=== PATIENT | female | born 1975 | race Caucasian/White ===

== ENCOUNTER 2019-12-20 18:17 | Observation (INO) | payer OTHER, SELFPAY ==
[2019-12-20] VITALS (9 sets, daily range): BP systolic 103–178; BP diastolic 63–91; PULSE 109–140; RESP 14–20; TEMP 36.7–37.2; O2SAT 95–100; BMI 48.6
--- NOTE | 2019-12-20 19:40 | ED.FEMALEGU ---
HPI - Female Genitourinary General Chief complaint: Vaginal Bleeding Stated complaint: VAG BLEEDING X2D Time Seen by Provider: 12/20/19 19:19 History of Present Illness HPI Narrative: Patient presents with her mother from home for vaginal bleeding. She said it was so heavy she had to leave for. She reports clots. It is the heaviest menstrual cycle she is ever had. She had a similar heavy cycle in August. She felt faint at work. she reports a double uterus double cervix and double canal. She does not use family-planning. She had 1 13 years ago and had a . She has not seen a physician since. She has not been sick recently. She drinks her coffee this appears to be an appetite suppressant. She works as an public accountant. Her surgeries includes wisdom tooth extraction and . She smokes marijuana. MD elicited complaint: vaginal bleeding Related Data Home Medications Medication Instructions Recorded Confirmed No Home Medications 12/20/19 12/20/19 Allergies Allergy/AdvReac Type Severity Reaction Status Date / Time latex Allergy Hives Verified 12/20/19 18:56 Review of Systems Review of Systems: Narrative: CONSTITUTIONAL: Denies fever, chills, or sweats. EYES: Denies visual changes, redness, or discharge. ENT: Denies rhinorrhea, congestion, sore throat, or otalgia. CARDIOVASCULAR: Denies chest pain, palpitations, or edema. RESPIRATORY: Denies cough or dyspnea. GASTROINTESTINAL: Denies abdominal pain, nausea, vomiting, or diarrhea. GENITOURINARY: Denies dysuria or hematuria. SKIN: Denies rash or itching. MUSCULOSKELETAL: Denies back pain, joint pain, or myalgia. NEUROLOGIC: Denies headache, numbness, or weakness. PSYCHIATRIC: Denies anxiety or depression. : Heavy vaginal bleeding PMFSH Past Medical History Medical History (Updated 12/20/19 @ 20:32 by Marti Drew MD) Menometrorrhagia Surgical History Surgical History (Updated 12/20/19 @ 19:43 by Marti Drew MD) History of History of wisdom tooth extraction Social History Social History (Updated 12/20/19 @ 19:43 by Marti Drew MD) Smoking status: Never smoker Alcohol intake: current Substance use: current Substance use type: marijuana Gender identity (if verbalized by the patient): Female Exam Narrative: Exam Narrative: GENERAL: Well-appearing, well-nourished, and in no acute distress. Overweight. Pale nailbeds. HEAD: Normocephalic, atraumatic. EYES: PERRLA and EOMI. ENT: Nares clear, no rhinorrhea or epistaxis. Mucous membranes moist. NECK: Supple. CHEST: Clear to auscultation. No respiratory distress. HEART: Regular rate and rhythm. No murmur heard. Normal peripheral pulses. ABDOMEN: Soft, nontender, nondistended, normal active bowel sounds. EXTREMITIES: Normal range of motion. No edema. SKIN: Warm, dry, no rash. NEURO: No focal deficits. Alert and oriented x3. PSYCH: Normal mood and affect. : Normal cervix. One blood clot. No active bleeding. No tenderness or masses. Course Reevaluation(s) Reevaluation #1: Went into explained to the patient about the hemoglobin of 6 and the need for blood transfusion. She agrees. I explained the admission process and that Dr. Holland would be her attending. Consultations Consultation #1: Call Dr. Holland and he accepts the admission. Date: 12/20/19 Time: 20:29 Vital Signs Vital signs: Vital Signs Temperature 99.0 F 12/20/19 18:48 Pulse Rate 119 H 12/20/19 18:48 Respiratory Rate 14 12/20/19 18:48 Blood Pressure 178/85 H 12/20/19 18:48 Pulse Oximetry 100 12/20/19 18:48 Temperature 99.0 F 12/20/19 18:48 Pulse Rate 140 H 12/20/19 20:16 Respiratory Rate 14 12/20/19 18:48 Blood Pressure 161/81 H 12/20/19 20:16 Pulse Oximetry 100 12/20/19 18:48 MDM - Female Genitourinary Medical Records Attestation: I reviewed the patient's medical records. Lab Data Attestation: I reviewed the patient's lab results. Result jose luis
[2019-12-20 19:58] LABS: Basophils Absolute Auto 0.1 K/mm3 (0.0-0.1); Basophils Percent Auto 0.4 % (0.2-1.2); Eosinophils Percent Auto 0.1 % (0-4.4); Hematocrit 21.8 % (37.0-47.0); Immature Granulocyte Absolute 0.09 K/mm3 (0.00-0.031); Immature Granulocyte Percent A 0.6 % (0-0.5); Lymphocytes Absolute Auto 2.31 K/mm3 (0.9-3.2); Lymphocytes Percent Auto 16.2 % (18.3-44.2); Mean Corpuscular HGB Conc 27.5 g/dl (32-36); Mean Corpuscular Hemoglobin 18.5 pg (26-34); Mean Corpuscular Volume 67.3 fl (80-100); Mean Platelet Volume 10.6 fl (7.4-10.4); Monocytes Absolute Auto 0.6 K/mm3 (0.1-0.6); Monocytes Percent Auto 4.4 % (2.6-8.5); Neutrophils Absolute Auto 11.2 K/mm3 (1.3-6.7); Neutrophils Percent Auto 78.3 % (45.5-73.1); Nucleated Red Blood Cells Perc 0.1 % (0.0-0.2); Platelet Count Result 264 k/mm3 (150-375); Red Blood Count 3.24 M/mm3 (4.2-5.4); Red Cell Distribution Width 19.9 % (11.5-14.5); White Blood Count 14.3 K/mm3 (4.5-10.0)
[2019-12-20 20:07] LABS: Platelet Estimate Adequate (Adequate)
[2019-12-20 20:08] LABS: Hypochromasia 2+ (NORMAL); Ovalocytes 1+ (NORMAL)
[2019-12-20 20:11] LABS: Alanine Aminotransferase 14 U/L (4-35); Albumin Level 3.7 g/dL (3.5-5.1); Alkaline Phosphatase 68 U/L (38-126); Aspartate Amino Transferase 18 U/L (14-36); Bilirubin,Total 0.2 mg/dL (0.2-1.3); Blood Urea Nitrogen 12 mg/dL (7-17); Calcium 8.3 mg/dL (8.4-10.2); Carbon Dioxide 24 mmol/L (22-30); Chloride 103 mmol/L (98-107); Estimated CRCL calculation 109 ml/min; Estimated Glomerular Filt Rate > 60; Glucose 124 mg/dL (65-105); Sodium 134 mmol/L (137-145)
[2019-12-20 20:15] LABS: INR 1.1; Prothrombin Time 13.8 Seconds (11.1-14.7)
[2019-12-20 20:16] LABS: Partial Thromboplastin Time 20.1 SECONDS (22.3-36.8)
[2019-12-20 20:27] LABS: Beta HCG Quantitative < 2.39 mIU/ML
--- NOTE | 2019-12-20 23:17 | ADMGEN ---
This patient, Deepti Echavarria, was admitted to [facility] Surg Room 320-01 at 2205. Patient/family oriented to hospital policies and general routines including ID bracelet, bed and alarms, visiting hours, pain management, procedures, bathroom and other care routines, personal items, smoking policy, room service/diet, and visiting hours. Valuables list has been completed. Information on how to activate the Rapid Response Team has been discussed. Patient/Family are encouraged to report perceived risks to care and to ask questions if they do not understand what they are told or what they should do.
[2019-12-21] VITALS (27 sets, daily range): BP systolic 112–147; BP diastolic 62–90; PULSE 90–118; RESP 16–20; TEMP 36.7–37.8; O2SAT 98–100
[2019-12-21 02:59] LABS: Amphetamine Screen Urine Negative (Negative); Barbiturate Screen Urine Negative (Negative); Benzodiazepines Screen Urine Negative (Negative); Cannabinoid Screen Urine Positive (Negative); Cocaine Screen Urine Negative (Negative); Methadone Screen Urine Negative (Negative); Opiate Screen Urine Negative (Negative); Phencyclidine Screen Urine Negative (Negative)
--- NOTE | 2019-12-21 09:09 | PM.IMHP ---
H&P: HPI History of Present Illness Chief complaint: Vaginal bleeding, anemia Narrative: Deepti Echavarria is a 44 year old female who presents for severe vaginal bleeding. She has had intermittent episodes of severe vaginal bleeding for many months. She was previously treated for irregular bleeding. Her history is significant for episodes of anovulatory bleeding. In the last year she does appear to have some regular ovulatory normal menstrual cycles with normal periods. She has no pain. She reports fatigue and shortness of breath. She was evaluated emergency department found have a hemoglobin of 6. She denies any chest pain. She denies any nausea, vomiting, fever, chills. Review of Systems Constitutional: Constitutional: Reports no additional constitutional complaints, Denies fatigue, Denies headache(s), Denies lethargy and Denies weakness Eyes: Eyes: Reports no additional eye complaints, Denies blurry vision and Denies photophobia ENT: Reports as per HPI, Denies headache(s) and Denies neck pain Cardiovascular: Cardiovascular: Denies chest pain, Denies diaphoresis, Denies leg edema, Denies palpitations and Denies dyspnea Respiratory: Respiratory: Denies hemoptysis, Denies dyspnea and Denies wheezing Gastrointestinal: Gastrointestinal: Denies abdominal pain, Denies melena, Denies bloating, Denies hematochezia, Denies nausea and Denies vomiting Genitourinary: Genitourinary: Reports no additional female genitourinary complaints Musculoskeletal: Musculoskeletal: Denies joint swelling, Denies neck pain, Denies numbness and Denies stiffness Neurologic: Denies Abnormal speech present, Denies confusion, Denies headache(s), Denies numbness and Denies weakness Psychiatric: Psychiatric: Denies anxiety, Denies confusion, Denies depression, Denies homicidal ideation and Denies suicidal ideation Endocrine: Endocrine: Denies fatigue and Denies palpitations Allergic/Immunologic: Allergic/Immunologic: Denies wheezing PMFSH Past Medical History Medical History (Updated 12/20/19 @ 20:32 by Marti Drew MD) Menometrorrhagia Surgical History Surgical History (Updated 12/20/19 @ 19:43 by Marti Drew MD) History of History of wisdom tooth extraction Family History Family History (Updated 12/20/19 @ 23:44 by Marguerite Solomon RN) Father Diabetes mellitus Social History Social History (Updated 12/20/19 @ 19:43 by Marti Drew MD) Smoking status: Never smoker Alcohol intake: current Drinks per week: 1 Substance use: current Substance use type: marijuana Other substance usage details: daily Gender identity (if verbalized by the patient): Female Sexual Orientation (if Verbalized by the Patient): Straight or Heterosexual Spiritual care concerns: No Meds Home Medications and Allergies Home Medications Medication Instructions Recorded Confirmed Type No Home Medications 12/20/19 12/20/19 History Allergies Allergy/AdvReac Type Severity Reaction Status Date / Time latex Allergy Hives Verified 12/20/19 18:56 Vital Signs Vital Signs - 24 hr 12/20/19 18:48 12/20/19 20:13 12/20/19 20:15 Temperature 99.0 F Pulse Rate 119 H 118 H 122 H Respiratory Rate 14 Blood Pressure 178/85 H 131/79 146/91 H Pulse Oximetry 100 12/20/19 20:16 12/20/19 21:57 12/20/19 22:05 Temperature 98.6 F Pulse Rate 140 H 119 H 120 H Respiratory Rate 19 16 Blood Pressure 161/81 H 103/63 159/78 H Pulse Oximetry 95 100 12/20/19 22:58 12/20/19 23:03 12/20/19 23:18 Temperature 98.1 F 98.0 F 98.6 F Pulse Rate 113 H 112 H 109 H Respiratory Rate 20 20 18 Blood Pressure 157/75 H 148/83 H 149/77 H Pulse Oximetry 100 100 100 12/21/19 00:00 12/21/19 00:03 12/21/19 01:03 Temperature 98.8 F 99.1 F Pulse Rate 118 H 112 H 118 H Respiratory Rate 20 18 Blood Pressure 147/73 H 130/63 Pulse Oximetry 100 99 12/21/19 02:06 12/21/19 03:14 12/21/19 03:17 Temperature 99.3 F 98.8 F 9
== END 2019-12-21 17:32 | disposition home or self-care (01) ==
LOC: ANHED 20:46 → ANH3MEDSUR 21:12
PROVIDERS: Admitting Provider Obstetrics & Gynecology; Emergency Provider Emergency Medicine; Visit Provider Obstetrics & Gynecology
DX: N92.1 Excessive and frequent menstruation with irregular cycle (principal); D64.9 Anemia, unspecified; Q51.21 Complete doubling of uterus; R00.0 Tachycardia, unspecified; R03.0 Elevated blood-pressure reading, without diagnosis of hypertension; F12.90 Cannabis use, unspecified, uncomplicated
CPT/HCPCS: 36415; 36430; 80053; 80307; 84702; 85025; 85610; 85730; 86850; 86900; 86901; 86923; 99285; G0378; P9016